=== PATIENT | female | born 1935 | race Caucasian/White ===

== ENCOUNTER 2018-08-15 18:23 | Observation (INO) | payer MEDICARE ==
[2018-08-15 20:09] LABS: Absolute Lymphocytes (CBC) 1.2 K/uL (0.7-4.9); Absolute Monocytes 0.8 K/uL (0.1-1.3); Absolute Neutrophil 4.9 K/uL (1.8-8.0); Basophils % 0.4 % (0-1.3); Hematocrit 50.4 % (36.0-45.0); Lymphocytes % 17.9 % (15.3-44.8); MCH 30.1 pg (27.0-35.0); MCV 89.5 fL (80-100); MPV 7.9 fL (7.6-11.3); Monocytes % 10.9 % (3.3-12.3); RBC Red Blood Cell Count 5.63 M/uL (3.86-4.86)
--- NOTE | 2018-08-15 20:13 | RAD REPORT ---
EXAM DESCRIPTION: Danica Single View08/15/2018 8:01 pm CLINICAL HISTORY: Shortness of breath/hypotension COMPARISON: October 2016 FINDINGS: The lungs appear clear of acute infiltrate. The heart is borderline enlarged. Pacemaker l jose rafael are in place. IMPRESSION: No acute abnormalities displayed
[2018-08-15] MEDS: NA CHLORIDE 0.9% 1,000 ML IV SCH (20:33)
[2018-08-15 20:34] LABS: Albumin 2.9 g/dL (3.4-5.0); Bilirubin Total 0.5 mg/dL (0.2-1.0); Magnesium 2.1 mg/dL (1.8-2.4); Phosphorus 2.3 mg/dL (2.5-4.9); Potassium 3.2 mmol/L (3.5-5.1); Protein, Total 6.7 g/dL (6.4-8.2); Thyroid Stimulating Hormone 2.9 uIU/mL (0.360-3.740)
--- NOTE | 2018-08-15 22:14 | RAD REPORT ---
EXAM DESCRIPTION: RAD - Spine Lumbar W obliques - 08/15/2018 10:00 pm CLINICAL HISTORY: Back pain FINDINGS: The alignment of the lumbar spine is satisfactory. No fracture or dislocation is seen. The bones are osteoporotic. Moderate diffuse spondylosis involves lumbar spine consisting disc space narrowing and osteophytes.
--- NOTE | 2018-08-15 22:15 | RAD REPORT ---
EXAM DESCRIPTION: RAD - Hip Bilateral With Pelvis - 08/15/2018 9:59 pm CLINICAL HISTORY: Hip pain FINDINGS: The bones are osteoporotic. No fracture or dislocation is seen. If the patient continues to have clinical symptoms to suggest an occult fracture MRI would be recomme nded
[2018-08-16 02:58] VITALS: BMI 29.9
[2018-08-16] MEDS ORDERED: POTASSIUM 25 MEQ EFFERV TAB PO ONE (03:11)
[2018-08-16 05:31] LABS: Folic Acid, (Folate) 5.5 ng/mL (3.1-17.5); Magnesium 1.7 mg/dL (1.8-2.4); Phosphorus 2.6 mg/dL (2.5-4.9); Potassium 3.7 mmol/L (3.5-5.1)
--- NOTE | 2018-08-16 05:40 | HP ---
Date of Admission: 08/15/2018 Chief Complaint: Not feeling good. History Of Present Illness: This is an 83-year-old female patient, who came to see me today with her son, [id number] and granddaughter. The patient is not compliant with her office visit or medic ation. Last time she saw me was on November 01, 2015. After that, she stopped coming to office and sh e stopped seeing any physician. The patient's family reports today that this is first time that she has gotten out of house in last 3 years. She is not taking care of her personal hygiene and family i nformed me that last time she took any shower or bath was about 3 months ago. Family was concerned a bout her declining health as about 2 weeks ago she fell down at home as she was in the bathroom, lost her balance and fell down and hit her head against bathtub. She was by herself at that time and she probably stayed in that position for almost 2 hours or longer until family came in and found out nelsy t she was on the bathroom floor. She has some yellowish-colored bruising over her forehead. She den ies any pain anywhere as a result of this fall. She lives at home and her older son lives with her; another son and rzlogest-vm-yra, who were at the office today, they live next door to her. The patie nt does not cook and family, that is the patient's son and daughter, who lives next door, takes meal to her in the evening time and she eats evening meal. During daytime they do not know if she eats an ything or not. Her son, who lives with her, he works, so there are few hours to several hours during daytime when patient is left alone by herself. The patient reports that she is able to get up and m ove around in the house holding onto furniture. She has incontinence problem as well. Denies any fe estela, chills, nausea, vomiting, diarrhea. No bleeding. No abdominal pain. Denies any pain anywhere. When I saw her today, she appeared weaker than normal. Her blood pressure was low, heart rate was rapid at 120 beats per minute, and decision was made to admit her to hospital for further evaluation and management of this problem. She has been having some cough, congestion, coughing up clear mucus in last few days, and reported that some of the family members are sick with similar illness. Allergies: TO PENICILLIN. Medications: She does not take any medications, but in the past she was taking aspirin, amlodipine, atorvastatin, folic acid, lorazepam, trazodone, omeprazole, and nefazodone. Review of Systems: Constitutional: As mentioned above. Respiratory: As mentioned above. All other systems reviewed and negative. Social History: Negative for smoking or alcohol use. The patient did smoke in the past, but has not smoked in many years. Past Surgical History: Partial pneumonectomy in 2009 due to lung cancer, coronary artery bypass surg bailee on April 20, 2014, cholecystectomy, tubal ligation, appendectomy. Family History: Significant for Alzheimer disease and colon cancer. Past Medical History: Significant for coronary artery disease, lung cancer, diabetes mellitus, hyper tension, gastroesophageal reflux disease. Physical Examination: Vital Signs: At office, we were not able to check her weight. Height 65 inches. When she first cam e in, her blood pressure was 113/83 with automatic blood pressure machine, pulse rate 121. Temperatu re 98.4. When I saw her, her manual blood pressure was 90/60, which was verified 2 times, and pulse rate was 120. General: Patient appears weaker than normal, not in any distress. HEENT: Head, patient has a yellowish-colored bruising all across the forehead. Conjunctivae noneryt hematous. Sclerae white. Mouth, no thrush or edema noted. Ears/Nose, no mass, lesion, discharge no jade. Neck: Supple. No JVD, lymph nodes, bruit, thyromegaly noted. Lungs: Bilateral good equal air entry. Clear to auscultation. No rhonchi. No rales. Heart: Normal heart sounds, no murmur or gallop. Abdomen: Soft, bowel sounds normal. No guarding, rigidity, tenderness, mass, hepatosplenomegaly, dis tention, or bruit noted. Extremities: No leg edema. No calf tenderness. Skin: No rash, ulcer, cellulitis. Lymphatics: No lymph node enlargement in neck, supraclavicular, infraclavicular region. Neuro: No focal neurological deficit. Chest: Unremarkable. External Genitalia: Deferred. Rectal: Deferred. Laboratory Data: Sodium 140, potassium 3.2, chloride 102, bicarb 32, BUN 13, creatinine 0.80, glucos e 81, phosphorus 2.3, magnesium 2.1. Liver function tests unremarkable. Albumin 2.9. Procalcitonin pending. Hemoglobin A1c pending. TSH 2.90. White count 7, hemoglobin 16.9, platelets 183. Chest x-ray, no acute cardiopulmonary changes noted. EKG pending. Impression: 1.Hypotension. 2.Coronary artery disease. 3.Hyperlipidemia. 4.Hypertension. 5.Lung cancer. 6.Gastroesophageal reflux disease. Plan: Admit the patient to hospital for further evaluation and management of this problem. Patient is appropriate for inpatient and is expected to spend 2 midnights in the hospital. We will go ahead and give her IV fluid. Follow up on hemoglobin A1c. Urinalysis was ordered, we will follow up on at. We will get an echocardiogram done tomorrow. Consult Physical Therapy. Consult Social Service. I did talk to patient and patient's family regarding disposition. Upon discharge from the hospital , patient probably will be returning back home and we will have Social Service help make arrangements for home health care and home physical therapy. We also talked about possibility of intermediate pl acement if her condition declines in the future and family will start thinking and talking about it. We did talk about advance directive and patient is full code as per her decision. The patient was a dvised to be compliant with followup appointments as well as medications. I will see her tomorrow mo rning for followup. BARRINGTON/IRMA Voice ID: [id number]
[2018-08-16 05:47] LABS: Urine Appearance TURBID; Urine Bilirubin NEGATIVE (NEG); Urine Blood NEGATIVE (NEG); Urine Color DK YELLOW; Urine Glucose NEGATIVE (NEG); Urine Protein 1+ (NEG); Urine pH 8.5 (5.0-7.0)
[2018-08-16] MEDS ORDERED: MAGNESIUM SULFATE 1 gm IVPB 1 GM/100 ML BAG IV ONE (06:00)
[2018-08-16] MEDS: NA CHLORIDE 0.9% 1,000 ML IV SCH (06:22)
[2018-08-16 06:29] LABS: Urine Amorphous Sediment 3+ /HPF (NONE SEEN); Urine Bacteria >50 /HPF (<20); Urine Culture Reflex Order REFLEXED; Urine RBC NONE SEEN /HPF (NONE SEEN); Urine Triple Phosphate Crystal MODERATE (NONE SEEN)
--- NOTE | 2018-08-16 06:49 | EKG ---
Test Date: 2018-08-16 Test Time: 02:12:31 [employer] Instrument [employer] Maker: RT MEASUREMENT RESULTS: Intervals: Rate: 76 WV: 174 QRSD: 74 QT: 408 QTc: 459 [place]: P: 15 WV: 174 QRS: -2 T: -3 INTERPRETIVE STATEMENTS: Normal sinus rhythm Normal ECG Compared to ECG 04/15/2014 08:40:48 ST (T wave) deviation no longer present Electronically Signed On 08-16-18 06:48:59 CDT by Andrés Bear
[2018-08-16] MEDS ORDERED: INFLUENZA VACCINE (for 3y+) 0.5 ML DOSE IMVAC ONE (08:00)
[2018-08-16] MEDS ORDERED: PNEUMOCOCCAL VACCINE 0.5 ML IMVAC ONE (08:00)
[2018-08-16] MEDS ORDERED: SMZ./TMP. 800/160 MG TABLET PO SCH (09:00)
[2018-08-16] MEDS ORDERED: DRISDOL (VITAMIN D=ERGOCALCIFEROL) 50000 UNIT CAP PO SCH (09:00)
[2018-08-16] MEDS ORDERED: ASPIRIN EC 81 MG TAB PO SCH (09:00)
[2018-08-16] MEDS ORDERED: ENOXAPARIN 30 MG/0.3 ML SQ SCH (09:00)
[2018-08-16 12:17] VITALS: BP 171/77; TEMP 97
--- NOTE | 2018-08-17 04:22 | DS ---
Date of Discharge: 08/16/2018 Disposition: Discharged to go home. Physical Examination: HEENT: Unremarkable. Lungs: Clear to auscultation. Heart: Sounds normal. Abdomen: Soft. Bowel sounds normal. No guarding, rigidity, tenderness, or distention. Extremities: No leg edema. Discharge Diagnoses: 1.Hypotension. 2.Coronary artery disease. 3.Hyperlipidemia. 4.Vitamin D deficiency. 5.Lung cancer. 6.Gastroesophageal reflux disease. 7.Urinary tract infection. Hospital Course: An 83-year-old female patient admitted to the hospital after she came into office w ith her family yesterday. Please see dictated H and P for more information. The patient had tachyca rdia with heart rate around 120 and she also had a hypotension. After she was evaluated in the [facility], decision was made to admit her to hospital. Further evaluation looking she was admitted to the [facility] included routine labs; chest x-ray; EKG; x-ray of her lumbosacral spine, bilateral hip, and pe lvis. She was started on IV fluid. Overall, her condition remained stable. Blood pressure came up. Tachycardia resolved. This morning when I saw her, she had no complaints. She did not have any ra sh in her groin. No abnormality in her feet detected, as family wanted me to check on those areas. Her fasting lipid profile this morning; triglyceride 156, total cholesterol 187, LDL 117, HDL 39. He r vitamin D level was very low at 7.9. Folate level 5.5, vitamin B12 275. TSH normal at 2.9. Magne sium was low at 1.7 and potassium was low yesterday and both were corrected using electrolyte replace ment protocol. X-ray of spine and hip, pelvis showed some changes of arthritis, no evidence of fract ure. Chest x-ray was negative for any acute changes. EKG was normal sinus rhythm, no evidence of an y atrial fibrillation. Overall, the patient's condition was stable today and will follow up on an ou tpatient basis. Discharge Medications And Instructions: 1.Follow up at my office in 2 weeks. 2.Take fbun-qzh-lbipqnw aspirin 81 mg p.o. daily with food. 3.Atorvastatin 20 mg daily after evening meal. 4.Take Bactrim DS 1 tablet by mouth 2 times a day with food for 1 week for bladder infection. 5.Take vitamin D 50,000 units 1 tablet once a week. BARRINGTON/IRMA Voice ID: [id number] Report ID: [id number]
--- NOTE | 2018-08-19 08:13 | ECHO ---
HEIGHT: 5 ft 5 in WEIGHT: 180 lb 0 oz DATE OF STUDY: 08/16/[address]: Husam Neumann MD 2-DIMENSIONAL: YES M.MODE: YES DOPPLER: YES COLOR FLOW: YES TDS: NO PORTABLE: NO DEFINITY: NO BUBBLE STUDY: NO DIAGNOSIS: CORONARY ARTERY DISEASE CARDIAC HISTORY: CATHERIZATION: NO SURGERY: NO PROSTHETIC VALVE: NO PACEMAKER: NO MEASUREMENTS (cm) DIASTOLIC (NORMALS) SYSTOLIC (NORMALS) IVSd 1.1 (0.6-1.2) LA Diam 4.4 (1.9-4.0) LVEF 55% LVIDd 2.6 (3.5-5.7) LVIDs 1.9 (2.0-3.5) %FS 27% LVPWd 1.1 (0.6-1.2) Ao Diam 2.6 (2.0-3.7) 2 DIMENSIONAL ASSESSMENT: RIGHT ATRIUM: NORMAL LEFT ATRIUM: NORMAL RIGHT VENTRICLE: NORMAL LEFT VENTRICLE: NORMAL TRICUSPID VALVE: NORMAL MITRAL VALVE: MITRAL ANNULAR CALCIFICATION PULMONIC VALVE: NORMAL AORTIC VALVE: SCLEROSIS PERICARDIAL EFFUSION: NONE AORTIC ROOT: NORMAL LEFT VENTRICULAR WALL MOTION: NORMAL. DOPPLER/COLOR FLOW: MILD TRICUSPID REGURGITATION. COMMENTS: MILD TRICUSPID REGURGITATION. MITRAL ANNULAR CALCIFICATION. AORTIC SCLEROSIS. NORMAL LEFT VENTRICULAR SIZE AND FUNCTION. TECHNOLOGIST: JAROCHO WINTER
== END 2018-08-16 12:52 | disposition home health service (06) ==
LOC: 4TH 18:23 → INTOOBSV 18:23
PROVIDERS: ADMIT Internal Medicine; ATTEND Internal Medicine
DX: I95.9 Hypotension, unspecified (principal); N39.0 Urinary tract infection, site not specified; I25.10 Atherosclerotic heart disease of native coronary artery without angina pectoris; E78.5 Hyperlipidemia, unspecified; E55.9 Vitamin D deficiency, unspecified; K21.9 Gastro-esophageal reflux disease without esophagitis; Z85.118 Personal history of other malignant neoplasm of bronchus and lung; Z95.1 Presence of aortocoronary bypass graft; Z23 Encounter for immunization
CPT/HCPCS: 36415; 71045; 72110; 73521; 80048; 80053; 80061; 81001; 82306; 82607; 82746; 83036; 83735 ×2; 84100 ×2; 84132; 84145; 84443; 85025; 87077; 87086; 87088; 87186; 90670; 93005; 93306; G0008; G0009; G0378; G0379; J1650; J3475; J7030 ×2; Q2035

== ENCOUNTER 2021-08-08 18:43 | Inpatient (IN) | payer MEDICARE ==
[2021-08-08] MEDS ORDERED: METOPROLOL TAR 25 MG TAB PO ONE (21:50)
[2021-08-08] MEDS ORDERED: ACETAMINOPHEN 500 MG TAB PO PRN (21:52)
[2021-08-08] MEDS ORDERED: MAGNESIUM HYDROXIDE 8% 30 ML PO PRN (21:52)
[2021-08-08] MEDS ORDERED: MAGNES/ALUMIN/SIMET 30ML UCUP PO PRN (21:52)
[2021-08-08] MEDS ORDERED: Levofloxacin500mg IV 500 MG/100 ML BAG IV SCH (22:00)
[2021-08-08 22:08] VITALS: BMI 34.6
[2021-08-08 22:08] LABS: Absolute Lymphocytes (CBC) 1.2 K/uL (0.7-4.9); Basophils % 0.6 % (0-1.3); Hematocrit 41.7 % (36.0-45.0); RBC Red Blood Cell Count 4.57 M/uL (3.86-4.86)
[2021-08-08] MEDS ORDERED: ENOXAPARIN 40 MG/0.4 ML SQ ONE (22:30)
[2021-08-08 23:23] LABS: ALT/SGPT 31 U/L (12-78); Albumin 3.3 g/dL (3.4-5.0); Alkaline Phosphatase 106 U/L (45-117); BUN Blood Urea Nitrogen 9 mg/dL (7-18); Bicarbonate 32 mmol/L (21-32); Bilirubin Total 0.8 mg/dL (0.2-1.0); Glucose Level 124 mg/dL (74-106); Protein, Total 6.7 g/dL (6.4-8.2); Sodium Level 132 mmol/L (136-145)
[2021-08-09 00:42] LABS: AST/SGOT 27 U/L (15-37); Potassium 4.8 mmol/L (3.5-5.1)
[2021-08-09 01:42] LABS: Folic Acid, (Folate) > 20.0 ng/mL (3.1-17.5)
--- NOTE | 2021-08-09 07:21 | HP ---
Date of Admission: 08/08/2021 Chief Complaint: Right foot pain and leg swelling. History Of Present Illness: This is an 86-year-old pleasant female patient who lives at home, was br ought into office today by her granddaughter with 2 to 3 days history of redness of the skin involvin g the right distal dorsum foot with multiple blisters. Denies any fall or injury. No fever. No chi lls. No shortness of breath. The patient wears comfortable pair of house shoes all the time and has not changed her shoes to any different type of shoes on her feet. No exposure to warm water. After she was evaluated, she was admitted to the hospital with cellulitis of leg and rapid heart rate. Sh e denies any chest pain, shortness of breath, or palpitation type of feeling. Allergies: TO PENICILLIN. DETAILS UNKNOWN. Medications: She takes atorvastatin 20 mg daily in the evening, aspirin 81 mg daily, vitamin D3 of 2 000 unit daily, metoprolol succinate 25 mg daily. Review of Systems: Cardiovascular: As mentioned above. Dermatology: As mentioned above. FACILITY WORKER: Impaired memory. All other systems reviewed and negative. Past Medical History: Significant for type 2 diabetes mellitus, lung cancer, hypertension, hyperlipi demia, coronary artery disease, gastroesophageal reflux disease, and vitamin D deficiency. Past Surgical History: Significant for partial pneumonectomy for lung cancer, tubal ligation, cholec ystectomy, appendectomy, and coronary artery bypass surgery. Family History: Father had colon cancer, Alzheimer disease. Mother during childbirth. Social History: Prior history of smoking, not at present time. Use of alcohol, negative. Physical Examination: Vital Signs: At office, blood pressure 137/79, pulse rate 139 per minute, temperature 98.7, respirat ory rate 16, weight 200.6 pounds, height 65 inches. General: Awake, alert, oriented, not in distress. HEENT: Head atraumatic, normocephalic. Conjunctivae nonerythematous. Sclerae white. Mouth, no thr ush or edema noted. Ears/Nose, no mass, lesion, discharge noted. Neck: Supple. No JVD, lymph nodes, bruit, thyromegaly noted. Lungs: Bilateral good equal air entry. Clear to auscultation. No rhonchi. No rales. Heart: Normal heart sounds, no murmur or gallop. Abdomen: Soft, bowel sounds normal. No guarding, rigidity, tenderness, mass, hepatosplenomegaly, dis tention, or bruit noted. Extremities: Bilateral grade 2 pedal edema extending up to the knees on both legs. Peripheral pulse , dorsalis pedis, and posterior tibial artery pulsation difficult to feel on both feet. Skin: Right dorsum foot skin involving distal one-third of the foot shows pink discoloration of skin , warm to touch, and has multiple blisters with one blister spontaneously ruptured. No discharge. N o bleeding. Lymphatics: No lymph node enlargement in neck, supraclavicular, infraclavicular region. Neuro: No focal neurological deficit. Chest: Unremarkable. External Genitalia: Deferred. Rectal: Deferred. Laboratory Data: White count 9.1, hemoglobin 13.9, platelets 236, COVID-19 test negative. Sodium 13 2, potassium 4.8, chloride 96, bicarb 32, BUN 9, creatinine 0.69, glucose 124. Liver function tests unremarkable. TSH 3.37. Impression: 1.Cellulitis, right foot. 2.Leg edema. 3.Rule out atrial fibrillation. 4.Hypertension. 5.Hyperlipidemia. 6.Coronary artery disease. 7.Lung cancer. 8.Type 2 diabetes mellitus. Plan: We will go ahead and admit the patient to hospital for further evaluation and management of th is problem. The patient is appropriate for inpatient and is expected to spend two midnights in [facility]. We will start her on empiric antibiotic which is Levaquin 500 mg IV daily. Get a venous Dopple r of lower extremity to rule out DVT and also we will get arterial Doppler of both lower extremities to assess her circulation in both legs. We will get echo with Doppler to evaluate left ventricular e jection fraction. Routine chest x-ray will be done. We will look at her EKG and start her on metopr olol 25 mg 2 times a day. We will continue her aspirin and atorvastatin and start applying Silvadene cream to right foot. Details and plan of treatment discussed with her and her granddaughter at the office. I will see her tomorrow morning for followup. BARRINGTON/MODL Voice ID: [id number]
--- NOTE | 2021-08-09 08:36 | RAD REPORT ---
EXAM DESCRIPTION: US - Extrem Venous W Compress Marco A - 08/09/2021 1:42 am CLINICAL HISTORY: leg edema, rule out DVT Bilateral leg edema and swelling. COMPARISON: No comparisons TECHNIQUE: Real-time sonographic interrogation of the left and right lower extremity deep venous sys tems was performed. FINDINGS: Normal compressibility, flow augmentation, phasic flow and spontaneous flow is identified in both the left and right lower extremity deep venous systems. IMPRESSION: No sonographic evidence of left or right lower extremity deep venous thrombosis.
--- NOTE | 2021-08-09 08:55 | RAD REPORT ---
EXAM DESCRIPTION: US - Lower Extremity Arterial Bilat - 08/09/2021 1:42 am CLINICAL HISTORY: rule out PVD Leg pain, claudication COMPARISON: No comparisons TECHNIQUE: Bilateral lower extremity arterial Doppler examination was performed with waveform tracin g and velocity measurements. FINDINGS: A diffuse pattern of bilateral monophasic waveforms are seen involving both lower extremity arterial systems. Peak systolic velocity measurements are mildly blunted bilaterally. No occlusion is identified. IMPRESSION: Diffuse bilateral pattern of monophasic waveforms is seen. This likely indicates inflow disease. CT angiography of the aorta with runoff could be obtained for further evaluation.
[2021-08-09] MEDS ORDERED: PNEUMOCOCCAL VACCINE 0.5 ML IMVAC ONE (09:00)
[2021-08-09] MEDS ORDERED: METOPROLOL TAR 25 MG TAB PO SCH (09:00)
[2021-08-09] MEDS ORDERED: INFLUENZA VACCINE (for 6+ mo) 0.5 ML DOSE IMVAC ONE (09:00)
[2021-08-09] MEDS: SILVER SULFADIAZINE 1% 50 GM TOP SCH (09:00)
--- NOTE | 2021-08-09 09:43 | RAD REPORT ---
EXAM DESCRIPTION: RAD - Chest Single View - 08/09/2021 6:48 am CLINICAL HISTORY: cellulitis, leg edema Chest pain. COMPARISON: Chest Single View dated 08/15/2018; Chest Pa And Lat (2 Views) dated 11/27/2016; CHEST PA AND LAT 2 VIEW dated 11/03/2015; CHEST SINGLE VIEW dated 04/16/2014 FINDINGS: Portable technique limits examination quality. Mild interstitial pulmonary edema is seen. Trace pleural fluid bilaterally. The heart is mildly promi nent in size. Changes of a prior CABG are noted. IMPRESSION: Mild CHF.
[2021-08-09] MEDS: SOTALOL HCL 80 MG TAB PO SCH (12:00)
[2021-08-09] MEDS ORDERED: ENOXAPARIN 40 MG/0.4 ML SQ SCH (17:00)
[2021-08-09] MEDS: APIXABAN 5 MG TABLET PO SCH (21:12)
[2021-08-09] MEDS: DOXYCYCLINE 100 MG in NA CHLORIDE 0.9% 100 ML IVPB SCH (21:22)
[2021-08-09] MEDS ORDERED: NA CHLORIDE 0.9% 100 ML ONE (21:29)
[2021-08-09] MEDS ORDERED: DOXYCYCLINE HYCLATE 100MG INJ ONE (21:39)
[2021-08-10] MEDS: SILVER SULFADIAZINE 1% 50 GM TOP SCH (07:54)
[2021-08-10] MEDS: APIXABAN 5 MG TABLET PO SCH ×2 (07:54→20:11)
[2021-08-10] MEDS: SOTALOL HCL 80 MG TAB PO SCH ×2 (07:54→20:11)
[2021-08-10] MEDS: FUROSEMIDE 20 MG/ 2ML VIAL IV SCH (07:56)
[2021-08-10 08:36] LABS: Absolute Lymphocytes (CBC) 1.1 K/uL (0.7-4.9); Basophils % 0.6 % (0-1.3); Hematocrit 40.8 % (36.0-45.0); Lymphocytes % 17.3 % (15.3-44.8); MPV 7.3 fL (7.6-11.3); RBC Red Blood Cell Count 4.49 M/uL (3.86-4.86)
[2021-08-10 08:43] LABS: Potassium 4.3 mmol/L (3.5-5.1)
--- NOTE | 2021-08-10 08:54 | PN ---
Date of Progress Note: 08/09/2021 Subjective: The patient was seen this morning for followup. No new complaints or problems reported by the patient. Lying in bed, not in distress. Denies any shortness of breath. Objective: Vital Signs: Reviewed. HEENT: Examination unremarkable. Lungs: Clear to auscultation. Heart: Sounds normal. Abdomen: Soft. Bowel sounds normal. No guarding, rigidity, tenderness, or distention. Extremities: Bilateral leg edema remains unchanged from yesterday. Right dorsum foot exam shows sig nificant improvement compared to yesterday. Her redness from dorsal foot has improved significantly, more than 50% better today than yesterday. She still has 3 small blisters on the dorsum foot, uncha nged from yesterday. Laboratory Data: Her venous Doppler of leg was negative for DVT. Arterial Doppler of leg shows bila teral peripheral arterial disease. Echocardiogram result pending. Impression: 1.Cellulitis, right leg. 2.Atrial fibrillation with rapid ventricular rate. 3.Hypertension. 4.Hyperlipidemia. Plan: We will go ahead and follow up on echocardiogram results and further medication will be adjust ed depending on that result. Meanwhile, we will continue her current antibiotic. She was on Levaqui n when we first admitted her, but today I have discontinued Levaquin and we will start her on doxycyc line because we are also starting her on sotalol for her atrial fibrillation. Details were discussed with Dr. Bear and he agrees to go ahead and get started the patient on sotalol and anticoagulatio n therapy for atrial fibrillation, which will be now Eliquis 5 mg 2 times a day. We will see what her echocardiogram shows. Depending on that, further medication will be adjusted. I will s ee her tomorrow for followup. BARRINGTON/MODL Voice ID: [id number] Report ID: [id number]
[2021-08-10] MEDS: DOXYCYCLINE 100 MG in NA CHLORIDE 0.9% 100 ML IVPB SCH ×2 (09:18→20:12)
[2021-08-10 09:27] VITALS: O2SAT 96
--- NOTE | 2021-08-10 16:40 | EKG ---
Test Date: 2021-08-09 Test Time: 11:14:34 [employer]est [employer] Crew Member: BRIGITTE MEASUREMENT RESULTS: Intervals: Rate: 100 WV: QRSD: 70 QT: 344 QTc: 443 [place]: P: [place]: QRS: 22 T: 23 INTERPRETIVE STATEMENTS: Atrial fibrillation Abnormal ECG Compared to ECG 08/16/2018 02:12:31 Sinus rhythm no longer present Electronically Signed On 08-10-21 16:36:00 CDT by Andrés Bear
--- NOTE | 2021-08-10 20:05 | PN ---
Date of Progress Note: 08/10/2021 Subjective: The patient was seen this morning for followup. She was lying in bed, not in distress. She did report having some shortness of breath last night. When I saw her this morning, she was sleeping comfortably, easily arousable, not in any distress. Objective: Vital Signs: Reviewed. HEENT: Unremarkable. Lungs: Bilateral good equal air entry. Not using any accessory muscles of respiration. Very minimal rales noted in lung bases. Heart: Sounds normal. Abdomen: Soft. Bowel sounds normal. No guarding, rigidity, tenderness, distention. Extremities: Bilateral leg edema, better today than yesterday. Right dorsum foot, redness from distal part remains unchanged from yesterday which is much improved from the time of admission. Three blisters on the right dorsal foot remains unchanged. Laboratory Data: Reviewed. Impression: 1. Cellulitis. 2. Atrial fibrillation. 3. Hypertension. 4. Coronary artery disease. Plan: We will go ahead and continue current medications, continue current antibiotics with one dose of Lasix given as per order and will see her tomorrow for followup, possible discharge to go home tomorrow. BARRINGTON/MODAnthony Voice ID: [id number] Report ID: [id number] YESSENIA
[2021-08-11] MEDS: APIXABAN 5 MG TABLET PO SCH (07:31)
[2021-08-11] MEDS: FUROSEMIDE 20 MG/ 2ML VIAL IV SCH (07:31)
[2021-08-11] MEDS: SILVER SULFADIAZINE 1% 50 GM TOP SCH (07:31)
[2021-08-11] MEDS: SOTALOL HCL 80 MG TAB PO SCH (07:31)
--- NOTE | 2021-08-11 07:47 | ECHO ---
HEIGHT: 5 ft 4 in WEIGHT: 201 lb 9 oz DATE OF STUDY: 08/09/[address]: Husam Neumann MD 2-DIMENSIONAL: YES M.MODE: YES DOPPLER: YES COLOR FLOW: YES TDS: NO PORTABLE: NO DEFINITY: NO BUBBLE STUDY: NO DIAGNOSIS: EVALUATE LEFT VENTRICULAR EJECTION FRACTION CARDIAC HISTORY: CATHERIZATION: SURGERY: PROSTHETIC VALVE: PACEMAKER: MEASUREMENTS (cm) DIASTOLIC (NORMALS) SYSTOLIC (NORMALS) IVSd 0.8 (0.6-1.2) LA Diam 4.6 (1.9-4.0) LVEF 66% LVIDd 3.8 (3.5-5.7) LVIDs 2.4 (2.0-3.5) %FS 36% LVPWd 0.9 (0.6-1.2) Ao Diam 2.8 (2.0-3.7) 2 DIMENSIONAL ASSESSMENT: RIGHT ATRIUM: NORMAL LEFT ATRIUM: DILATED RIGHT VENTRICLE: NORMAL LEFT VENTRICLE: NORMAL TRICUSPID VALVE: NORMAL MITRAL VALVE: NORMAL PULMONIC VALVE: NORMAL AORTIC VALVE: NORMAL PERICARDIAL EFFUSION: NONE AORTIC ROOT: NORMAL LEFT VENTRICULAR WALL MOTION: NORMAL DOPPLER/COLOR FLOW: MILD MITRAL AND TRICUSPID REGURGITATION. NORMAL RIGHT VENTRICULAR SYSTOLIC PRESSURE. COMMENTS: NORMAL LEFT VENTRICULAR SIZE AND FUNCTION. MILD MITRAL AND TRICUSPID REGURGITATION. NORMAL RIGHT VENTRICULAR SYSTOLIC PRESSURE. LEFT ATRIAL ENLARGEMENT. NO THROMBUS. ATRIAL FIBRILLATION. TECHNOLOGIST: Terrance VOSS
[2021-08-11 08:14] VITALS: BP 130/64; TEMP 96.8
[2021-08-11] MEDS: DOXYCYCLINE 100 MG in NA CHLORIDE 0.9% 100 ML IVPB SCH (10:47)
--- NOTE | 2021-08-12 04:06 | DS ---
Date of Discharge: 08/11/2021 Disposition: Discharged to go home. Physical Examination: HEENT: Unremarkable. Lungs: Clear to auscultation. Heart: Sounds normal. Abdomen: Soft. Bowel sounds normal. No guarding, rigidity, tenderness, or distention. EXTREMITIES: Bilateral grade 1 edema, better than before and right dorsum foot examination shows 3 s mall blisters stable and area of cellulitis has significantly improved. I would say probably about 9 0% better compared to how it was when she was first admitted to hospital. Discharge Medications And Instructions: 1.Continue atorvastatin and vitamin D as you were taking prior to this admission. 2.Stop aspirin. 3.Stop metoprolol. 4.Start following new medication: a.Doxycycline 100 mg 2 times a day for 1 week. b.Eliquis 5 mg 2 times a day. c.Sotalol 80 mg 2 times a day. 5.Follow up at my office next week on 08/16/2021, at 11 a.m. 6.Follow up with Dr. Bear in 2 weeks. Hospital Course: 86-year-old pleasant female patient, admitted to the hospital with right foot pain and bilateral leg swelling and tachycardia. Please see dictated H and P for more information. The p atient had rapid heartbeat 139 per minute and I was concerned about atrial fibrillation. Further angelica luation did reveal that the patient had atrial fibrillation with rapid ventricular rate. Initially, she was given metoprolol 25 mg 2 times a day. Cardiology consultation was obtained and Dr. Chema valentino valuated her and recommended to start the patient on sotalol and she was started on 80 mg 2 times a d ay. The patient has tolerated this very well so far. She is still in atrial fibrillation, but her h eart rate is well controlled now at 60 to 70 beats per minute. She was also started on Eliquis 5 mg 2 times a day. Empiric antibiotic initially she was started on Levaquin, subsequently it was changed to doxycycline considering the patient was on sotalol. Overall, the patient's condition has improve d. Area of cellulitis has significantly improved. Leg swelling has improved. She did receive 1 dos e of Lasix 20 mg IV as I was concerned about possibility of congestive heart failure and she was havi ng little bit shortness of breath. Echocardiogram done during this hospitalization reveals normal ej ection fraction. What we believe she has is chronic diastolic congestive heart failure problem and w chicho will consider maintenance diuretic therapy on outpatient basis if needed, but right now, atrial fib rillation could have contributed to her congestive heart failure problem also. Silvadene was applied to her right foot and she was sent home with Silvadene that she was using in the hospital. I will s ee her at office next week. Venous Doppler of leg was negative for DVT and arterial Doppler showed s ignificant stenotic lesion. This evening, I did call the patient's son at [phone] and all the disch arge instructions were discussed with him and he was also told that the patient should take appropria te precautions to avoid head injury, and in case if she has any skin cut that causes bleeding or any nosebleed, blood in stool, blood in urine, any kind of bleeding episode, she will need to come to the emergency room for further evaluation. All those details were discussed with the patient as well. Final Diagnoses: 1.Cellulitis, right foot. 2.Atrial fibrillation, chronic. 3.Hypertension. 4.Hyperlipidemia. 5.Coronary artery disease. 6.Lung cancer. 7.Type 2 diabetes mellitus. 8.Hyponatremia. 9.Chronic diastolic congestive heart failure. Laboratory Data: Upon admission, white count 9.1, hemoglobin 13.9, and platelets 236. Repeat white count yesterday 6.5, hemoglobin 13, and platelets 251. Upon admission, sodium 132, potassium 4.8, ch loride 96, bicarb 32, BUN 9, creatinine 0.69, and glucose 124. Liver function tests unremarkable. P roBNP yesterday was 4684 and sodium 131, BUN 9, creatinine 0.71. Vitamin D level 31.3. Odonnell catheter level more than 20 and TSH 3.37. Vitamin B12 was 353. BARRINGTON/MODL Voice ID: [id number] Report ID: [id number]
--- NOTE | 2021-08-14 11:08 | CON ---
Date of Consultation: 08/09/2021 Reason For Consultation: Atria fibrillation and cellulitis. History Of Present Illness: Ms. Workman is an 86-year-old, patient of Dr. Neumann, has a history of hype rtension and dyslipidemia and came in with cellulitis, was found to be in atrial fibrillation at a ra te of 121. No cardiac symptoms reported. Denied PND, orthopnea, palpitations, or syncope. Has had some pedal edema. Denied shortness of breath. Denied chest pain, nausea, vomiting, or diaphoresis. Already ruled out for an IA. EKG showed atrial fibrillation. Chest x-ray is negative. Troponin is negative. Past Medical History: As stated above. Allergies: TO PENICILLIN. Review of Systems: Negative. Social History: Negative. Family History: Noncontributory. Medications: At home include aspirin, metoprolol, and Lipitor. Physical Examination: General: She was in atrial fibrillation rate of 121. No acute distress. Vital Signs: Stable. Afebrile. HEENT: Negative. Neck: Supple with no bruit. Chest: Clear. Cardiac: Revealed atrial fibrillation. No murmurs, gallops, or rubs. Abdomen: Obese, but benign. Extremities: Revealed cellulitis that have improved dramatically apparently since admission. Diagnostic Data: As stated earlier. Impression And Plan: Atrial fibrillation, new diagnosis may be more chronic than we think. I think we need to get an echocardiogram. We need to consider sotalol 80 mg b.i.d. or beta-darlene. She nee ds to be on an anticoagulant and I will see her in the office recent soon. She needs to be on antico agulation for at least 3 weeks before we can attempt an electric cardioversion. Case was discussed w ith the patient and with Dr. Neumann and I will see her soon. MARLI/IRMA Voice ID: [id number] Report ID: [id number]
== END 2021-08-11 12:19 | disposition home or self-care (01) | DRG 603 ==
LOC: UNDOADMIN 18:43 → ERHOLD 18:43 → 4TH 20:13
PROVIDERS: ADMIT Internal Medicine; ATTEND Internal Medicine
DX: L03.115 Cellulitis of right lower limb (principal); I48.20 Chronic atrial fibrillation, unspecified; I50.32 Chronic diastolic (congestive) heart failure; E87.1 Hypo-osmolality and hyponatremia; I11.0 Hypertensive heart disease with heart failure; E78.5 Hyperlipidemia, unspecified; I25.10 Atherosclerotic heart disease of native coronary artery without angina pectoris; E11.9 Type 2 diabetes mellitus without complications; Z20.822 Contact with and (suspected) exposure to COVID-19; Z88.0 Allergy status to penicillin; Z85.118 Personal history of other malignant neoplasm of bronchus and lung; Z95.1 Presence of aortocoronary bypass graft
CPT/HCPCS: 36415; 71045; 80048; 80053; 82306; 82607; 82746; 83735; 83880; 84443; 85025; 93005; 93306; 93925; 93970; J1650; J1940; U0003